=== PATIENT | female | born 1950 | race Caucasian/White ===

== ENCOUNTER 2018-08-09 12:47 | Emergency (ER) | payer MEDICARE, BC ==
[~2018-08-09 12:47] MED LIST: DEXT30TA2 PO; DULO60CA6 PO; HYDR1TAB14 PO; LURA20TA PO; METH54TA PO
[2018-08-09] MEDS ORDERED: ONDANSETRON PF 4 MG/2 ML VIAL. IV ONE (13:00)
[2018-08-09] MEDS ORDERED: PROPOFOL 20 ML IV ONE (13:29)
--- NOTE | 2018-08-09 13:36 | RAD ---
3 views left wrist dated 08/09/2018. No comparison available. Clinical data indication: Pain after injury. FINDINGS: 3 views of left wrist show comminuted intra-articular fracture of the distal radius with dorsal displacement of the distal fragment relative to the radial shaft. Fracture lines extend to the articular surface and to the distal radial ulnar joint. The distal ulna is intact. Carpal bones are grossly intact. Moderate degenerative change of the first carpometacarpal joint and scaphotrapezial joint. IMPRESSION: Comminuted intra-articular displaced fracture of the distal radius. Electronically signed by: Jose Ramos MD (08/09/2018 1:33 PM) [id number]
--- NOTE | 2018-08-09 13:37 | RAD ---
4 view sacrum dated 08/09/2018. No comparison available. CLINICAL INDICATION: Pain after injury. FINDINGS: 4 views were obtained. Bilateral SI joints are symmetric. Mild hypertrophic changes bilaterally. No apparent fracture. The coccygeal tip is intact. Moderate spondylotic change of the lower lumbar spine. IMPRESSION: No apparent acute abnormality. Electronically signed by: Jose Ramos MD (08/09/2018 1:34 PM) [email or web address]
--- NOTE | 2018-08-09 13:40 | PHYS DOC ---
Past History Past Medical History: Endometriosis, Fibromyalgia, Hypertension, Other Past Surgical History: Appendectomy, Tonsillectomy Smoking: Non-smoker Alcohol Use: None Drug Use: None Adult General Chief Complaint Chief Complaint: UPPER EXTREMITY INJURY HPI HPI Patient is a 67-year-old female who presents with complaint of left wrist injury and tailbone pain. Patient indicates that she had fallen onto her left hand injuring her left wrist and then onto her tailbone. Patient rates her pain to be a 10 out of 10. She denies any head injury or loss of consciousness. Patient states the pain is worsened with movement of her wrist.[] Review of Systems Review of Systems Constitutional: Denies fever or chills [] Respiratory: Denies cough or shortness of breath [] Cardiovascular: No additional information not addressed in HPI [] Musculoskeletal: Positive left wrist and tailbone pain [] Integument: Denies rash or skin lesions [] Neurologic: Denies headache, focal weakness or sensory changes [] Current Medications Current Medications Current Medications Medications (Trade) Dose Ordered Sig/Lynn Start Time Stop Time Status Last Admin Dose Admin Fentanyl Citrate (Fentanyl 2ml Vial) 50 mcg 1X ONCE 08/09/18 13:00 08/09/18 13:02 DC 08/09/18 12:58 50 MCG Ondansetron HCl (Zofran) 4 mg 1X ONCE 08/09/18 13:00 08/09/18 13:02 DC 08/09/18 12:58 4 MG Propofol 20 ml @ As Directed STK-MED ONCE 08/09/18 13:29 08/09/18 13:30 DC Allergies Allergies Allergies Coded Allergies Type Severity Reaction Last Updated Verified No Known Drug Allergies 08/20/13 No Physical Exam Physical Exam Constitutional: Well developed, well nourished, no acute distress, non-toxic appearance. [] Eyes: PERRLA, EOMI, conjunctiva normal, no discharge. [] Neck: Normal range of motion, no tenderness, supple, no stridor. [] Cardiovascular:Heart rate regular rhythm, no murmur [] Lungs & Thorax: Bilateral breath sounds clear to auscultation [] Abdomen: Bowel sounds normal, soft. [] Skin: Warm, dry, no erythema, no rash. [] Extremities: Examination of left wrist demonstrates mild soft tissue swelling with deformity I'm early overlying the distal radius with dorsal angulation. [] Neurologic: Alert and oriented X 3, no focal deficits noted. [] Current Patient Data Vital Signs Vital Signs Date Time Temp Pulse Resp B/P (MAP) Pulse Ox O2 Delivery O2 Flow Rate FiO2 08/09/18 13:00 112 18 97 Room Air EKG EKG [] Radiology/Procedures Radiology/Procedures [] Impressions: PROCEDURE: WRIST 3V LEFT 3 views left wrist dated 08/09/2018. No comparison available. Clinical data indication: Pain after injury. FINDINGS: 3 views of left wrist show comminuted intra-articular fracture of the distal radius with dorsal displacement of the distal fragment relative to the radial shaft. Fracture lines extend to the articular surface and to the distal radial ulnar joint. The distal ulna is intact. Carpal bones are grossly intact. Moderate degenerative change of the first carpometacarpal joint and scaphotrapezial joint. IMPRESSION: Comminuted intra-articular displaced fracture of the distal radius. Electronically signed by: Jose Ramos MD (08/09/2018 1:33 PM) Course & Med Decision Making Course & Med Decision Making Pertinent Labs and Imaging studies reviewed. (See chart for details) Patient moved to room upon arrival was evaluated by your medical staff after which patient given IV fentanyl and Zofran for pain. Images were obtained that d emonstrated comminuted distal radius fracture. At this point options were discussed with patient to include treating with pain medication until patient able to tolerate reduction of wrist versus moderate sedation. Patient elected to undergo moderate sedation with propofol and Zofran. Procedural Sedation: Pre-assessment performed. See preceding complete history and physical for details. Time out performed. See sedation documentation for details. Medication(s): Propofol Complications: No hypoxic or apneic events Recovered without incident. Greater than 15 minutes of face to face time included in sedation and recovery. Reduction by me: Anesthesia: Propofol Location: Distal radius Technique: Gentle traction and manipulation Results: Taoism of near normal anatomic positioning Neurovascularly intact post procedure. Post reduction, patient was placed in a sugar tong splint by ER nurse, medic and physician. Good fit and alignment is noted post splinting with patient neurovascularly intact distal to injury. Patient placed in sling after splinting. Splint Assessment: Neurovascularly intact post splint placement with good fit. Dragon Disclaimer Dragon Disclaimer This electronic medical record was generated, in whole or in part, using a voice recognition dictation system. Departure Departure: Impression: Primary Impression: Distal radius fracture, left Disposition: HOME, SELF-CARE Condition: STABLE Referrals: RACH CHUNG (PCP) HERNANDO YUAN MD Call tomorrow morning to schedule follow up appointment for next Monday. Patient Instructions: Wrist Fracture Scripts Naproxen (NAPROSYN) 500 Mg Tablet 1 TAB PO BID PRN for PAIN, #20 TAB Prov: BOBBY RAUSCH Jr. DO 08/09/18 Hydrocodone Bit/Acetaminophen (HYDROCODONE-APAP 7.5-325 ) 1 Each Tablet 1 TAB PO PRN Q6HRS PRN for PAIN, #20 TAB 0 Refills Prov: BOBBY RAUSCH Jr. DO 08/09/18 Problem Qualifiers Primary Impression: Distal radius fracture, left Encounter type: initial encounter Fracture type: closed Fracture morphology: unspecified fracture morphology Qualified Codes: S52.502A - Unspecified fracture of the lower end of left radius, initial encounter for closed fracture BOBBY RAUSCH Jr. DO August 09, 2018 13:40
[2018-08-09 13:55] VITALS: BP 161/85
--- NOTE | 2018-08-09 13:58 | RAD ---
2 views left wrist dated 08/09/2018. Comparison made to study dated same day. Clinical data indication: Reduction of left wrist fracture. FINDINGS: 2 views left wrist show interval reduction of distal radius fracture with near anatomic alignment. There are comminuted fracture fragments distally. Fracture lines extend to the articular surface. The distal ulna is intact. IMPRESSION: Improved alignment of distal radius fracture. Electronically signed by: Jose Ramos MD (08/09/2018 1:55 PM) [facility]
[2018-08-09] MEDS ORDERED: NAPR-683 PO (14:45)
[2018-08-09] MEDS ORDERED: HYDR-2765 PO (14:45)
== END 2018-08-09 15:25 | disposition home or self-care (01) ==
LOC: ER 12:47
DX: S52.572A Other intraarticular fracture of lower end of left radius, initial encounter for closed fracture (principal); M53.3 Sacrococcygeal disorders, not elsewhere classified; M79.7 Fibromyalgia; I10 Essential (primary) hypertension; W18.39XA Other fall on same level, initial encounter; Y93.89 Activity, other specified; Y92.89 Other specified places as the place of occurrence of the external cause; Y99.8 Other external cause status
CPT/HCPCS: 25605; 72220; 73100; 73110; 99285; J2405; J3010; 99152

== ENCOUNTER 2018-08-19 07:43 | Emergency (ER) | payer MEDICARE, BC ==
[~2018-08-19] VITALS: Ht 172.7 cm; Wt 83.0 kg
[2018-08-19 07:43] VITALS: BP 129/83
[~2018-08-19 07:43] MED LIST changes: +HYDR-2765 PO; +NAPR-683 PO
[2018-08-19] MEDS ORDERED: POLY119P4 PO (08:36)
--- NOTE | 2018-08-19 08:36 | PHYS DOC ---
Past History Past Medical History: Endometriosis, Fibromyalgia, Hypertension, Other Additional Past Medical Histor: chronic constipation Past Surgical History: Appendectomy, Tonsillectomy Smoking: Non-smoker Alcohol Use: None Drug Use: None Adult General Chief Complaint Chief Complaint: CONSTIPATION HPI HPI Patient is a 67-year-old female presents with 2 complaints 1. Drainage from her left arm. Patient is 5 days postop for an open reduction internal fixation of her left arm. She took a bath at 2:00 in the morning today and slipped soaking the cast/splint material. She noted red drainage through the now wet cast. She denies any fever. Denies any purulent drainage. Denies any new numbness, tingling, or pain in that arm. 2. Constipation. This is a long-standing issue with the patient for which she takes Colace as well as prune juice daily. This is been exacerbated since the surgery and the administration of narcotic oral pain medicine. She is passing flatus. Reports her last bowel movement was prior to the surgery, 5 days ago. Denies any rectal bleeding. Denies any nausea or vomiting. [] Review of Systems Review of Systems Constitutional: Denies fever or chills [] Eyes: Denies change in visual acuity, redness, or eye pain [] HENT: Denies nasal congestion or sore throat [] Respiratory: Denies cough or shortness of breath [] Cardiovascular: No chest pain or palpitations[] GI: Denies abdominal pain, nausea, vomiting, bloody stools or diarrhea [] : Denies dysuria or hematuria [] Musculoskeletal: Denies back pain or joint pain, see history of present illness [] Integument: Denies rash or skin lesions [] Neurologic: Denies headache, focal weakness or sensory changes [] Endocrine: Denies polyuria or polydipsia [] All other systems were reviewed and found to be within normal limits, except as documented in this note. Allergies Allergies Allergies Coded Allergies Type Severity Reaction Last Updated Verified No Known Drug Allergies 08/20/13 No Physical Exam Physical Exam Constitutional: Well developed, well nourished, no acute distress, non-toxic a ppearance. [] HENT: Normocephalic, atraumatic, bilateral external ears normal, oropharynx moist, no oral exudates, nose normal. [] Eyes: PERRLA, EOMI, conjunctiva normal, no discharge. [] Neck: Normal range of motion, no tenderness, supple, no stridor. [] Cardiovascular:Heart rate regular rhythm, no murmur [] Lungs & Thorax: Bilateral breath sounds clear to auscultation [] Abdomen: Bowel sounds normal, soft, no tenderness, no masses, no pulsatile masses. [] Skin: Warm, dry, no erythema, no rash. [] Back: No tenderness, no CVA tenderness. [] Extremities: Left forearm. The chest volar splint was removed. The splint was still soaking wet. The incision appears to be clean and dry, there is local erythema around the wound. There is some swelling compared to the right side. There is no tenderness to palpation. There is no drainage from the wound. The Steri-Strips are intact. Patient is distal neurovascularly intact with full active range of motion. The other 3 extremities show: No tenderness, no cyanosis, no clubbing, ROM intact, no edema. [] Neurologic: Alert and oriented X 3, normal motor function, normal sensory function, no focal deficits noted. [] Psychologic: Affect normal, judgement normal, mood normal. [] EKG EKG [] Radiology/Procedures Radiology/Procedures [] Course & Med Decision Making Course & Med Decision Making Pertinent Labs and Imaging studies reviewed. (See chart for details) ED course: Patient arrived, was placed in bed, and tolerated exam well. She had the splint removed, the area under the splint allowed to dry and a new splint applied. She was distally neurovascularly intact after splint application. She was able to tolerate magnesium citrate while in the emergency department. Discussed plan with the patient who voiced understanding. All questions were answered. Medical decision making: It appears that the Betadine used to prep the arm for surgery is what seat through, there is no evidence of an infection at this time. No evidence of active bleeding. No evidence of wound dehisced since. Believe patient to have constipation as a long-standing issue worsened by the narcotic pain medicine. Have administered magnesium citrate while in the emergency department. Discussing other long-term treatment for her constipation issues with her. There is no evidence of an obstruction or perforation. No evidence of oral intake intolerance.[] Dragon Disclaimer Dragon Disclaimer This electronic medical record was generated, in whole or in part, using a voice recognition dictation system. Departure Departure: Impression: Primary Impression: Cast removal Additional Impression: Constipation Disposition: 01 HOME, SELF-CARE Condition: IMPROVED Referrals: RACH CHUNG (PCP) HERNANDO YUAN MD Call on Monday to arrange follow-up Patient Instructions: Cast or Splint Care, Constipation, Adult Additional Instructions: Keep the splint clean and dry. Follow-up with the orthopedic surgeon in 2 days. Call on Monday to arrange follow-up. Follow-up with your regular doctor in 2 days. Drink plenty of fluids. Increase fiber in your diet. An easy way to do this is to add a cereal with "fiber" or "bran" in the name. Take the medication as prescribed. Return to the ER if worsening pain, purulent drainage, rectal bleeding, or any other concerns. Scripts Polyethylene Glycol 3350 (MIRALAX) 119 Gm Powder 17 GM PO DAILY for constipation, #255 GM Prov: FAYE MENDEZ DO 08/19/18 Problem Qualifiers Additional Impression: Constipation Constipation type: unspecified constipation type Qualified Codes: K59.00 - Constipation, unspecified FAYE MENDEZ DO August 19, 2018 08:36
[2018-08-19] MEDS ORDERED: MAGNESIUM CITRATE 296 ML SOLUTION. PO ONE (08:45)
== END 2018-08-19 08:55 | disposition home or self-care (01) ==
LOC: ER 07:43
DX: Z46.89 Encounter for fitting and adjustment of other specified devices (principal); K59.00 Constipation, unspecified; M79.7 Fibromyalgia; I10 Essential (primary) hypertension
CPT/HCPCS: 29125; 99283

== ENCOUNTER → 2021-02-01 | Outpatient (CLI) | payer MEDICARE, BC ==
[~2021-02-01] MED LIST changes: +ALPR0.5T6 PO; +ALPR1TAB6 PO; +BIO CURCUMIN PO; +CARI350T14 PO; -DULO60CA6 PO; +DULO60CA7 PO; +FISH OIL PO; -HYDR1TAB14 PO; +HYDR1TAB15 PO; +LEVO88TA4 PO; +MACUGUARD PO; +MULTIVITAMIN PO; +OLME40TA12 PO; +OXYC1TAB15 PO; +POLY119P4 PO; +PROBIOTIC PO; +[UNRECOGNIZED DRUG - OTHER]; +[UNRECOGNIZED DRUG - OTHER] PO
== END ==
LOC: LAB 12:21
PROVIDERS: ATTEND Ophthalmology
DX: Z01.812 Encounter for preprocedural laboratory examination (principal); Z20.822 Contact with and (suspected) exposure to COVID-19
CPT/HCPCS: U0003

== ENCOUNTER → 2021-02-04 | Day surgery (SDC) | payer MEDICARE, BC ==
[~2021-02-04] MED LIST changes: +ACETAMINOPHEN 500 MG TABLET PO PRN; +BALANCED SALT IRRIG SOLN NO.2 500 ML IO ONE; +BENZONATATE 100 MG CAPSULE. PO PRN; +BRIMONIDINE 0.2% OPHTH SOLUTION 5ML BOTTLE. OS ONE; +CEFUROXIME OPHTH 4 MG/0.4 ML SYRINGE. OS ONE; +CHONDROIT-SOD-HYALURONATE KIT. OS ONE; +IBUPROFEN 200 MG TABLET PO PRN; +IPRATRPIUM/ALBUTEROL 0.5/2.5MG 3 ML NEBU. NEB PRN; +IV RINGERS SOLUTION,LACTATED 1,000 ML IV SCH; +LIDO/EPI IN BSS OPHTH 2.7 ML SYRINGE. OS ONE; +LIDOCAINE 2% JELLY 6ML IN APPLICATOR. ONE; +MIDAZOLAM HCL PF 2 MG/2 ML VIAL. IV ONE; +MIDAZOLAM HCL PF 2 MG/2 ML VIAL. ONE; +ONDANSETRON PF 4 MG/2 ML VIAL. IV PRN; +PHENYLEPHRINE 10% OPHTH SOLUTION 5ML BOTTLE. OS PRN; +POVIDONE-IODINE 5% OPHTH SOLUTION 30ML BOTTLE. OS ONE; +POVIDONE-IODINE 5% OPHTH SOLUTION 30ML BOTTLE. OS PRN; +PROPARACAINE 0.5% OPHTH SOLUTION 15ML BOTTLE. OS ONE; +PROPARACAINE 0.5% OPHTH SOLUTION 15ML BOTTLE. OS PRN; +prednisoLONE ACETATE 1% OPHTH SUSPENSION 5ML BOTTLE. OS ONE
[2021-02-04] MEDS: KETOROLAC TROMETHAMINE 0.5% OPHTH SOLUTION BOTTLE. OS SCH ×2 (07:46→07:52)
[2021-02-04] MEDS: TOBRAMYCIN 0.3% OPHTH SOLUTION 5ML BOTTLE. OS SCH ×2 (07:46→07:52)
[2021-02-04] MEDS: TROPICAMIDE 1% OPHTH SOLUTION 15ML BOTTLE. OS SCH ×3 (07:46→07:58)
[2021-02-04] MEDS: PHENYLEPHRINE 2.5% OPHTH SOLUTION 2ML BOTTLE. OS SCH ×3 (07:46→07:58)
--- NOTE | 2021-02-04 09:06 | PDOC4 ---
SURGEON: Aye Lewis MD Date of Procedure: 02/04/21 PREOP Diagnosis Visually significant cataract: Left Eye OS Pre-existing astigmatism: Left Eye OS POSTOP Diagnosis Same PROCEDURE: Phaco w/ posterior chamber IOL: Left Eye OS ANESTHESIA Deep forniceal periocular 2% Lidocaine jelly Shannon/retro bulbar block with 2% Lidocaine with 0.5% Marcaine DESCRIPTION OF PROCEDURE The risks, benefits, and alternatives were discussed with the patient who elected to proceed. Informed consent was obtained in writing and placed in the chart After anesthetizing the eye topically, the patient was taken to the operating room, and the operative eye was prepped and draped in the usual sterile fashion for ocular surgery. A wire lid speculum was placed. A 1-mm clear corneal paracentesis incision was created with the side-port blade at a position three o'clock hours clockwise from the temporal cornea. Then, 1% non-preserved Lidocaine with epinephrine was injected into the anterior chamber followed by viscoelastic. Cotton-tipped applicators were used to stabilize the globe, and a 2.4 mm keratome was used to create a self-sealing incision in clear cornea at the temporal limbus. The Utrata forceps were used to create a continuous curvilinear capsulorrhexis. Balanced saline solution was injected via cannula beneath the capsulorrhexis edge to hydrodissect the lens nucleus and cortex from the lens capsule. The phacoemulsification handpiece and a chopping instrument were then used to remove the lens nucleus. The remaining epinuclear material and cortex were removed with the irrigation/aspiration handpiece. Viscoelastic was used to re-inflate the lens capsule, and the intraocular lens was injected directly into the capsular bag. The corneal wound edges were hydrated with balanced salt solution on a cannula and the irrigation/aspiration handpiece was used to extract the remaining viscoelastic. Cefuroxime 0.1mg/ml / Vigamox 0.5% was injected into the anterior chamber intracamerally. The wounds were inspected and found to be watertight at an appropriate intraocular pressure. Topical antibiotic drops were placed on the corneal surface. LRI: No If Yes, Number [] Whitwell [] Length [] degrees Depth [] microns Incision Whitwell: 180 Toric Lens Whitwell [[id number]] Patch/shield with Maxitrol/Tobradex/Erythromycin ointment: Yes No Co-managed patients/postop examination stable for co-management with referring doctor. EBL EBL: None SPECIMANS COLLECTED Specimens Collected: None AYE LEWIS MD Feb 04, 2021 09:06
[2021-02-04 09:18] VITALS: BP 135/74
== END | disposition home or self-care (01) ==
LOC: SURG 07:20
PROVIDERS: ATTEND Ophthalmology
DX: H25.12 Age-related nuclear cataract, left eye (principal); I10 Essential (primary) hypertension; E03.9 Hypothyroidism, unspecified; M79.7 Fibromyalgia; G89.29 Other chronic pain; Z98.890 Other specified postprocedural states; Z79.899 Other long term (current) drug therapy
CPT/HCPCS: 66984; J2250; V2787